=== PATIENT | male | born 1945 | race Caucasian/White ===

== ENCOUNTER → 2020-12-12 09:56 | Outpatient (CLI) | payer MEDICARE ==
[2020-08-15 10:51] VITALS: BMI 31.9
--- NOTE | ~2020-12-12 | EC ---
PATIENT:JOAQUINA BUI DATE OF SERVICE: 12/12/20 SEX: M MEDICAL RECORD: [id number] DATE OF : 45 [facility] AGE OF PATIENT: 75 ADMISSION DATE: 12/12/20 REFERRING PHYSICIAN: INTERPRETING PHYSICIAN: ADRIAN FONTENOT MD ECHOCARDIOGRAM REPORT ECHO CHARGES 4 ECHO COMPLETE Date: 12/12/20 CLINICAL DIAGNOSIS: DYSPNEA/CAD/ISCHEMIC CARDIOMYOPATHY/PACEMAKER ASSESS EF POST PACER/STENT ECHOCARDIOGRAPHIC MEASUREMENTS (adult normal given) AC root (d.<3.7cm) 4.1 cm LV Septum d (<1.2 cm> 1.5 cm Valve Excursion 2.0 cm LV Septum (systole) 1.8 cm Left Atria (s.<4.0cm> 4.1 cm LVPW d(<1.2cm) 1 cm RV (d.<2.3cm) 1.8 cm LVPW (sytole) 2.0 cm LV diastole(<5.6CM) 5.6 cm MV E-F(>70mm/sec) cm LV systole 3.7 cm LVOT Diameter 1.7 cm MV exc.(>10mm) 1.4 cm Est.ejection fraction (50-75%) % DOPPLER: LVIT cm/sec A 60.0 cm/sec E 108.0 cm/sec LA cm/sec RVSP 15 mmHg LVOT 93 cm/sec AOP1/2T m/s Asc. Ao 140 cm/sec RVOT 83 cm/sec RA cm/sec PA 108 cm/sec AV Gradient Peak 7.88 mmHg AV Mean 4.29 mmHg AV Area 2.2 cm MV Gradient Peak 5.71 mmHg MV Mean 2.19 mmHg MV Area cm COMMENTS: Strickler Attendant: 2 OLEG BLANCAS Network Operations Lead: 3 Dr. Reece TAPE# PACS Pericardial Effusion N DATE OF SERVICE: Adequate 2D, color flow imaging, spectral Doppler, and M-Mode. LVH is present. LV internal dimensions are upper limits of normal at 5.6 cm. LV wall motion shows mild septal hypokinesis with underlying paced rhythm. LV function appears preserved at 50% or better. Aortic valve sclerosis without stenosis. Left atrium is upper limits of normal to mildly dilated at 4.1 cm. Mitral valve shows no prolapse. Trace MR. Right-sided chambers are grossly ECHOCARDIOGRAM REPORT [id number] JOAQUINA BUI normal. Trace TR. TRANSINT:[id number] Voice Confirmation ID: [id number] DOCUMENT ID: [id number] ADRIAN FONTENOT MD CC: [id number] DICTATION DATE: 12/13/20 1055 GEOSCIENCE TECHNICIAN: 12/13/20 1211 DEP CLI 12/12/20 [facility] [address] [id number]
[~2020-12-12 09:56] MED LIST: ASPIRIN325 MG PO; HYDROCHLOROTH12.5 M1 PO; PLAVIX75 MG PO; ZESTRIL10 MG PO
== END | disposition home or self-care (01) ==
LOC: D.HCCECHO 09:56
PROVIDERS: ATTEND Internal Medicine Interventional Cardiology
DX: R06.09 Other forms of dyspnea (principal)